=== PATIENT | male | born 1980 | race African-American/Black ===

== ENCOUNTER 2023-10-13 13:40 | Emergency (ER) | payer OTHER ==
[2023-10-13 13:53] VITALS: BP 136/78; PULSE 78; RESP 18; TEMP 98.6; BMI 28.1
[2023-10-13] MEDS ORDERED: LIDOCAINE 4% PATCH TP ONE (14:44)
[2023-10-13] MEDS: LIDOCAINE 4% PATCH TP ONE (14:45)
[2023-10-13] MEDS ORDERED: LIDOCAINE PATCH REMOVAL MC ONE (22:00)
== END 2023-10-13 15:12 | disposition home or self-care (01) ==
LOC: JERFT 13:40
DX: M54.50 Low back pain, unspecified (principal); V89.2XXA Person injured in unspecified motor-vehicle accident, traffic, initial encounter
CPT/HCPCS: 99283-25